=== PATIENT | female | born 1990 | race Caucasian/White ===

== ENCOUNTER 2020-11-18 07:56 | Emergency (ER) | payer OTHER ==
[~2020-11-18] VITALS: Ht 175.3 cm; Wt 62.6 kg
[2020-11-18 08:04] VITALS: Ht 175.3 cm; Wt 62.6 kg
[2020-11-18 10:34] VITALS: BP 107/68
== END 2020-11-18 10:34 | disposition home or self-care (01) ==
LOC: ED 07:56
DX: S01.81XA Laceration without foreign body of other part of head, initial encounter (principal); S00.211A Abrasion of right eyelid and periocular area, initial encounter; S00.81XA Abrasion of other part of head, initial encounter; V49.49XA Driver injured in collision with other motor vehicles in traffic accident, initial encounter; Y93.I9 Activity, other involving external motion; Y92.411 Interstate highway as the place of occurrence of the external cause; Y99.8 Other external cause status
CPT/HCPCS: 82962